=== PATIENT | male | born 1960 | race Asian ===

== ENCOUNTER 2021-06-06 15:12 | Emergency (ER) | payer BC ==
[2021-06-06] MEDS ORDERED: Morphine 4 MG/ML VIAL ONE ×2 (15:58→18:17)
[2021-06-06] MEDS ORDERED: Ondansetron PF 4 MG/2 ML Vial ONE ×2 (15:58→18:17)
[2021-06-06 17:02] LABS: #Basophils 0.1 10x3/uL (0.0-0.2); #Eosinphils 0.1 10x3/uL (0.0-0.5); %Basophils 0.7 % (0.0-2.0); %Eosinophils 0.5 % (0.0-6.0); %Lymphocytes 7.4 % (18.0-47.0); %Monocytes 6.2 % (0.0-10.0); %Neutrophils 84.6 % (40.0-75.0); Hemoglobin 13.9 g/dL (13.5-17.5); Mean Corpuscular HGB CONC 32.2 g/dL (32.0-36.0); Mean Corpuscular Hemoglobin 29.3 pg (27.0-33.0); Mean Corpuscular Volume 90.9 fl (81.2-95.1); Mean Platelet Volume 9.6 fl (7.4-10.4); Platelet Count 255 10x3/uL (150-450); Red Blood Cell (RBC) Count 4.75 10x6/uL (4.32-5.72); White Blood Cell (WBC) Count 15.4 10x3/uL (3.5-10.5)
[2021-06-06 17:06] LABS: ALT (SGPT) 16 U/L (8-55); AST (SGOT) 15 U/L (5-34); Alkaline Phosphatase 59 U/L (40-110); Anion Gap 10 mmol/L (10-20); BUN (Urea Nitrogen) 16 mg/dL (8.4-25.7); Bilirubin, Total 0.5 mg/dL (0.2-1.2); Calc. Creatinine Clearance 0 mL/min (70-130); Calcium 8.6 mg/dL (7.8-10.44); Carbon Dioxide 28 mmol/L (22-29); Chloride 103 mmol/L (98-107); Globulin 2.9 g/dL (2.4-3.5); Glucose 110 mg/dL (70-105); Lipase 37 U/L (8-78); Potassium 4.6 mmol/L (3.5-5.1); Protein, Total 6.9 g/dL (6.0-8.3); Sodium 136 mmol/L (136-145)
[2021-06-06 18:21] LABS: Bilirubin Neg (Negative); Blood, Urine Negative (Negative); Clarity Clear (Clear); Glucose, Urine (Dipstick) Normal (Negative); Ketone, Urine Negative (Negative); Leukocyte Negative (Negative); Nitrite Negative (Negative); Protein, Urine (Dipstick) Negative (Neg-Trace); Urobilinogen Normal mg/dL (Less than 2)
[2021-06-06] MEDS ORDERED: Ketorolac Tromethamine 30 MG/ML VIAL ONE (19:19)
== END 2021-06-06 21:55 | disposition home or self-care (01) ==
LOC: CSHERS 15:12
DX: K80.20 Calculus of gallbladder without cholecystitis without obstruction (principal)
CPT/HCPCS: 36415; 74177; 76705; 80053; 81003; 83690; 85025; 96374; 96375; 96376; J1885; J2270; J2405

== ENCOUNTER 2021-06-17 09:30 | Outpatient (CLI) | payer BC ==
[2021-06-17 17:46] LABS: SARS-CoV-2 PCR by NAA Not Detected (NotDetected)
== END 2021-06-17 09:31 | disposition home or self-care (01) ==
LOC: CSHLAB 09:30
PROVIDERS: ATTEND Surgery
DX: Z01.818 Encounter for other preprocedural examination (principal); Z20.822 Contact with and (suspected) exposure to COVID-19
CPT/HCPCS: 93005; 93010; U0003; U0005

== ENCOUNTER 2021-06-20 10:46 | Day surgery (SDC) | payer BC ==
[2021-06-18 14:41] VITALS: BMI 25.0
[2021-06-20] MEDS ORDERED: Lidocaine 1% MPF 2 ML VIAL ONE (11:23)
[2021-06-20] MEDS ORDERED: EPINEPHrine 1 MG/ML AMP ONE (12:22)
[2021-06-20] MEDS ORDERED: Bupivacaine PF 0.5% 30 ML VIAL ONE (12:23)
[2021-06-20] MEDS ORDERED: Famotidine/PF 20 mg/2ml Vial ONE ×2 (12:24→12:25)
[2021-06-20] MEDS ORDERED: SUGAMMADEX SODIUM 200 MG/2 ML VIAL ONE (12:24)
[2021-06-20] MEDS ORDERED: Lidocaine 2% PF 5 ML VIAL ONE (12:30)
[2021-06-20] MEDS ORDERED: Ketorolac Tromethamine 30 MG/ML VIAL ONE (12:30)
[2021-06-20] MEDS ORDERED: Fentanyl 100 MCG/2 ML VIAL ONE ×2 (12:30→14:49)
[2021-06-20] MEDS ORDERED: PROPOFOL 20 ML ONE (12:30)
[2021-06-20] MEDS ORDERED: Metoclopramide HCl 10 MG/2 ML VIAL ONE (12:34)
[2021-06-20] MEDS ORDERED: Dexamethasone 4 mg/ml Vial ONE (12:34)
[2021-06-20] MEDS ORDERED: Ondansetron PF 4 MG/2 ML Vial ONE (12:34)
[2021-06-20] MEDS ORDERED: Rocuronium Bromide 10 MG/ML (10ML VIAL) ONE (12:34)
[2021-06-20] MEDS ORDERED: Lidocaine 4% PF 5 ML AMP ONE (13:59)
[2021-06-20] MEDS ORDERED: Metoprolol Tartrate 5 MG/5 ML VIAL ONE (14:00)
[2021-06-20] MEDS ORDERED: HYDROcodone/Acetaminophen 5/325 mg Tablet PO PRN (14:51)
== END 2021-06-20 15:48 | disposition home or self-care (01) ==
LOC: CSHSDC 10:46
PROVIDERS: ATTEND Surgery
PROC: 0FT44ZZ Resection of Gallbladder, Percutaneous Endoscopic Approach (ICD-10-PCS; principal; 2021-06-20)
DX: K80.12 Calculus of gallbladder with acute and chronic cholecystitis without obstruction (principal); F17.210 Nicotine dependence, cigarettes, uncomplicated
CPT/HCPCS: 88304; C1776; J0171; J0690; J1100; J1885; J2001; J2405; J2704; J2765; J3010; S0020; S0028